=== PATIENT | female | born 1975 | race Caucasian/White ===

== ENCOUNTER 2018-07-30 17:35 | Emergency (ER) | payer OTHER ==
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
[2018-07-30 20:00] VITALS: BP 147/78
== END 2018-07-30 20:19 | disposition short-term general hospital (02) ==
LOC: UCCORT 17:35
DX: R10.12 Left upper quadrant pain (principal); M54.9 Dorsalgia, unspecified; E07.9 Disorder of thyroid, unspecified; J45.909 Unspecified asthma, uncomplicated; Z79.899 Other long term (current) drug therapy
CPT/HCPCS: 81003; 99212; G0463